=== PATIENT | female | born 1945 | race Caucasian/White ===

== ENCOUNTER 2021-11-11 13:55 | Emergency (ER) | payer MEDICARE, OTHER ==
[2021-11-11 14:25] LABS: BASOPHIL 0.6 % (0-2); EOSINOPHIL 0.6 % (0-7); HCT 36.3 % (37.0-47.0); HGB 11.5 g/dl (12.5-16.0); MCH 28.3 pg (25.0-31.0); MCHC 31.7 g/dL (32.0-36.0); MCV 89.4 fL (78.0-100.0); MONOCYTE 6.8 % (0-12); MPV 8.7 fL (6.0-9.5); NEUTROPHIL 59.7 % (41-80); NRBC 0; PLT 270 K/uL (150-400); RBC 4.06 M/uL (4.20-5.40); RDW 13.4 % (11.5-14.0); WBC 8.8 K/uL (4.0-10.5)
[2021-11-11 14:42] LABS: ALBUMIN 4.1 g/dL (3.4-5.0); BILIRUBIN - TOTAL 0.4 mg/dL (0.2-1.0); BUN/CREAT RATIO (CALC) 21.3 RATIO; CREATININE 0.75 mg/dL (0.51-0.95); GLOBULIN (CALCULATION) 3.7 g/dL; POTASSIUM 3.2 mmol/L (3.5-5.1); TOTAL PROTEIN 7.8 g/dL (6.4-8.2)
[2021-11-11 17:07] LABS: BILIRUBIN NEGATIVE (NEGATIVE); BLOOD 1+ Ery/uL (NEGATIVE); CLARITY CLEAR (CLEAR); COLOR YELLOW (YELLOW); GLUCOSE (U) NORMAL (NORMAL); LEUKOCYTES 1+ Leu/uL (NEGATIVE); NITRITE NEGATIVE (NEGATIVE); PROTEIN NEGATIVE (NEGATIVE); SPECIFIC GRAVITY <=1.005 (1.001-1.030); UROBILINOGEN 0.2 mg/dL (0.2-1.0); pH 6.5 (5.0-9.0)
[2021-11-11 17:17] LABS: MAGNESIUM 2.5 mg/dL (1.8-2.4)
[2021-11-11 17:29] LABS: BACTERIA TRACE
== END 2021-11-11 17:30 | disposition home or self-care (01) ==
LOC: FER 13:55
PROVIDERS: Emergency Medicine
DX: R07.89 Other chest pain (principal); Z20.822 Contact with and (suspected) exposure to COVID-19; Z88.8 Allergy status to other drugs, medicaments and biological substances
CPT/HCPCS: 36415; 70450; 71045; 80053; 81001; 83735; 84484; 85025; 85379; 93005; U0002